=== PATIENT | male | born 1985 | race African-American/Black ===

== ENCOUNTER 2024-02-14 17:31 | Emergency (ER) | payer OTHER, SELFPAY ==
--- NOTE | ~2024-02-14 | XR_ITS ---
XR knee LT min 4V Ordering provider: Franky Muro MD History: . sports injury, pain . Comparison: None. FINDINGS: BONES: No acute fracture or dislocation. JOINT SPACES: Normal. SOFT TISSUES: Normal. IMPRESSION: No acute osseous abnormality left knee. Reviewed, dictated and finalized at location A.
[2024-02-14 17:36] VITALS: BP 116/82; PULSE 82; RESP 18; TEMP 36.6; O2SAT 99
--- NOTE | 2024-02-14 20:24 | ED.LOWEXIN ---
HPI - Extremity Injury (Lower) General Chief Complaint: Extremity Injury, Lower Stated Complaint: Left knee pain/injury Time Seen by Provider: 02/14/24 20:09 Source: patient, RN notes reviewed and old records reviewed Mode of arrival: wheelchair Limitations: no limitations History of Present Illness HPI Narrative: This is a 38 year old male who presents for evaluation of left knee pain. PAtient states that he is a student driving instructor and He twisted his knee when spotting someone while tumbling. He reports medial left knee pain. He has not taken any medication. Pain worse with movement and walking. PAin currently 4/10. Related Data Allergies Allergy/AdvReac Type Severity Reaction Status Date / Time No Known Allergies Allergy Verified 02/14/24 20:32 Review of Systems Review of Systems: All systems reviewed & are unremarkable except as noted in HPI and below PMFSH Past Medical History Medical History (Updated 02/14/24 @ 20:32 by Nasrin Fontana MD) Patient denies medical problems Surgical History Surgical History (Updated 02/14/24 @ 20:30 by Nasrin Fontana MD) No pertinent past surgical history Social History Social History (Updated 02/14/24 @ 20:30 by Nasrin Fontana MD) Smoking status: Never smoker Exam Const: General: no acute distress and alert Nutritional Appearance: well nourished Orientation/consciousness: patient oriented x3 Limitations: no limitations HENMT: Head: normal to inspection Chest: Chest palpation & inspection: normal inspection of the chest Resp: Effort & Inspection: normal respiratory effort Skin: General skin exam: normal color Rashes: no rashes Wounds: no wounds Neuro: General: moves all extremities Extrem: General: no clubbing, cyanosis or edema and no pedal edema Other: left knee- no deformity or swelling Psych: Mental Status: mental status grossly normal Affect: normal affect Attitude: cooperative Course Vital Signs Vital signs: Vital Signs Temperature 97.8 F 02/14/24 17:36 Pulse Rate 82 02/14/24 17:36 Respiratory Rate 18 02/14/24 17:36 Blood Pressure 116/82 02/14/24 17:36 Pulse Oximetry 99 02/14/24 17:36 Temperature 97.8 F 02/14/24 17:36 Pulse Rate 82 02/14/24 17:36 Respiratory Rate 18 02/14/24 17:36 Blood Pressure 116/82 02/14/24 17:36 Pulse Oximetry 99 02/14/24 17:36 MDM - Extremity Injury (Lower) Imaging Data Radiologist's impression: ITS Impressions Knee X-Ray 02/14/24 17:56 IMPRESSION: No acute osseous abnormality left knee. Discharge Plan Discharge Clinical Impression: Left knee sprain Qualifiers: Encounter type: initial encounter Involved ligament of knee: medial collateral ligament Qualified Code(s): S83.412A - Sprain of medial collateral ligament of left knee, initial encounter Patient Disposition: Home, Self-Care Condition: Stable Instructions: Antibiotic Form, Knee Sprain (ED), Knee Sprain (DC) Prescriptions: New ibuprofen 800 mg tablet 800 mg PO TID PRN (Reason: pain) Qty: 20 0RF Follow-up/Referrals: PHYSICIAN,EGG SETTER [Primary Care Provider] - Danilo Martinez MD [Physician] -
== END 2024-02-14 20:52 | disposition home or self-care (01) ==
PROVIDERS: Emergency Provider General Practice
DX: S83.412A Sprain of medial collateral ligament of left knee, initial encounter (principal); X50.0XXA Overexertion from strenuous movement or load, initial encounter; Y93.43 Activity, gymnastics
CPT/HCPCS: 73564; 99283